=== PATIENT | female | born 1980 | race African-American/Black ===

== ENCOUNTER 2017-06-14 19:04 | Emergency (ER) | payer MEDICAID ==
[~2017-06-14] VITALS: Ht 162.6 cm; Wt 71.7 kg
[~2017-06-14 19:04] MED LIST: DOCU-131 PO; FERR325T18 PO; IBUP-1223 PO; METO10TA82 PO; NONE PER PT; OXYC-302 PO; OXYC-306 PO; PREN1TAB60
[2017-06-14] MEDS ORDERED: LIDOCAINE 1%, 20ML SQ ONE (19:30)
[2017-06-14] MEDS ORDERED: DIPH,PERTUSS(ACELL),TET VAC/PF 0.5 ML IM-VACC ONE ×2 (20:30→20:31)
[2017-06-14] MEDS ORDERED: L.E.T SOLUTION TP ONE ×2 (20:30→20:32)
[2017-06-14] MEDS ORDERED: LIDOCAINE 1%, 20ML ONE (20:31)
[2017-06-14] MEDS ORDERED: LORazepam 2 MG/ML, 1ML ONE (22:25)
[2017-06-14] MEDS ORDERED: LORazepam 2 MG/ML, 1ML IM ONE (22:30)
[2017-06-14] MEDS ORDERED: ETOMIDATE 20 MG/10 ML IV ONE (23:00)
[2017-06-15] MEDS ORDERED: ETOMIDATE 20 MG/10 ML ONE (00:10)
[2017-06-15 05:22] VITALS: BP 181/94
== END 2017-06-15 05:40 | disposition home or self-care (01) ==
LOC: ED 21:09
DX: S01.01XA Laceration without foreign body of scalp, initial encounter (principal); S83.91XA Sprain of unspecified site of right knee, initial encounter; V49.9XXA Car occupant (driver) (passenger) injured in unspecified traffic accident, initial encounter; Y93.89 Activity, other specified; Y92.89 Other specified places as the place of occurrence of the external cause; Y99.8 Other external cause status
CPT/HCPCS: 13152; 29505; 70450; 73564; 73590; 90471; 90715; 96372; 99285; J2060

== ENCOUNTER → 2018-01-13 | Outpatient (CLI) | payer MEDICAID ==
[2018-01-13 10:43] LABS: BASOPHILS # (AUTO) 0.03 x10^3/uL (0-0.1); BASOPHILS % (AUTO) 0 % (0-1); EOSINOPHILS # (AUTO) 0.16 x10^3/uL (0-0.4); EOSINOPHILS % (AUTO) 2 % (1-7); LYMPHOCYTES # (AUTO) 2.02 x10^3/uL (1-3.4); LYMPHOCYTES % (AUTO) 23 % (22-44); MD NO; MEAN CORPUSCULAR HEMOGLOBIN 25.4 pg (27.0-34.8); MEAN CORPUSCULAR HGB CONC 32.2 g/dL (32.4-35.8); MEAN CORPUSCULAR VOLUME 78.9 fL (80-100); MEAN PLATELET VOLUME 6.9 fL (7.4-10.4); MONOCYTES # (AUTO) 0.61 x10^3/uL (0.2-0.8); MONOCYTES % (AUTO) 7 % (2-9); NEUTROPHILS # (AUTO) 5.82 x10^3/uL (1.8-6.8); NEUTROPHILS % (AUTO) 67 % (42-75); PLATELET COUNT 487 x10^3/uL (130-400); RED BLOOD COUNT 4.73 x10^6/uL (3.82-5.3); RED CELL DISTRIBUTION WIDTH 17.9 % (9.6-15.2)
[2018-01-13 10:50] LABS: INTERNATIONAL NORMALIZED RATIO 0.99 (0.93-1.1); PROTHROMBIN TIME 10.3 Seconds (9.6-11.5)
[2018-01-13 10:54] LABS: ALBUMIN 3.1 g/dL (3.4-5.0); ANION GAP 8 mmol/L (5-15); CHLORIDE 103 mmol/L (98-107)
[2018-01-13 10:58] LABS: ALANINE AMINOTRANSFERASE 22 U/L (12-78); ALKALINE PHOSPHATASE 112 U/L (45-117); BILIRUBIN,TOTAL 0.4 mg/dL (0.2-1.0); CALCIUM 8.5 mg/dL (8.5-10.1); CREATININE 0.76 mg/dL (0.55-1.02); TOTAL PROTEIN 7.8 g/dL (6.4-8.2)
== END | disposition home or self-care (01) ==
LOC: STAR 09:57
PROVIDERS: ATTEND Specialist
DX: Z01.818 Encounter for other preprocedural examination (principal); A63.0 Anogenital (venereal) warts
CPT/HCPCS: 36415; 80053; 85025; 85610; 85730

== ENCOUNTER 2018-01-24 09:14 | Day surgery (SDC) | payer MEDICAID ==
[~2018-01-24] VITALS: Ht 162.6 cm; Wt 63.7 kg
[2018-01-24] MEDS ORDERED: LACTATED RINGERS 1,000 ML IV SCH (09:35)
[2018-01-24 09:36] VITALS: BP 150/74
[2018-01-24] MEDS ORDERED: LIDOCAINE-MPF 1%, 2ML INFIL ONE (10:00)
[2018-01-24] MEDS ORDERED: MIDAZOLAM 1 MG/ML, 2ML ONE (10:05)
[2018-01-24] MEDS ORDERED: FENTANYL PF 250 MCG/5ML ONE (10:06)
[2018-01-24] MEDS ORDERED: PROPOFOL 10 MG/ML, 20ML ONE (10:20)
[2018-01-24] MEDS ORDERED: BUPIVACAINE 0.25% INFIL ONE (10:52)
[2018-01-24] MEDS ORDERED: EPINEPHRINE 1 MG/ML, 1ML INFIL ONE (10:53)
[2018-01-24] MEDS ORDERED: LABETALOL 5MG/ML, 20ML IV PRN (11:30)
[2018-01-24] MEDS ORDERED: ONDANSETRON ODT 8 MG PO PRN (11:30)
[2018-01-24] MEDS ORDERED: MEPERIDINE/PF 25MG/0.5ML IVPush PRN (11:30)
[2018-01-24] MEDS ORDERED: FENTANYL PF 100 MCG/2ML IV PRN (11:30)
[2018-01-24] MEDS ORDERED: KETOROLAC 30 MG/1 ML IV PRN (11:30)
[2018-01-24] MEDS ORDERED: ACETAMINOPHEN 325 MG TABLET PO PRN (11:30)
[2018-01-24] MEDS ORDERED: OXYcodone 5 MG/5 ML ORAL.SOL UDC PO PRN (11:30)
[2018-01-24] MEDS ORDERED: MORPHINE SULFATE 4 MG/ML, 1ML IVPush PRN (11:30)
== END 2018-01-24 16:35 ==
LOC: OUT 09:14
PROVIDERS: ATTEND Specialist
DX: N76.2 Acute vulvitis (principal); N90.89 Other specified noninflammatory disorders of vulva and perineum; Z72.89 Other problems related to lifestyle; Z87.891 Personal history of nicotine dependence; Z98.890 Other specified postprocedural states
CPT/HCPCS: 56605; 81025; 88305; J0171; J2250; J2704; J3010; J3490; J7120

== ENCOUNTER 2018-02-21 09:06 | Inpatient (IN) | payer MEDICAID ==
[~2018-02-21] VITALS: Ht 162.6 cm; Wt 72.3 kg
[~2018-02-21 09:06] MED LIST changes: +BUPIVACAINE/PF 0.25% ONE; +FENTANYL PF 250 MCG/5ML ONE; +MIDAZOLAM 1 MG/ML, 2ML ONE
[2018-02-21 10:00] VITALS: BP 172/73
[2018-02-21] MEDS ORDERED: LACTATED RINGERS 1,000 ML IV SCH (10:14)
[2018-02-21 10:15] LABS: HCG UR SG 1.024 (1.003-1.030)
[2018-02-21] MEDS ORDERED: SCOPOLAMINE PATCH, 1.5MG PATCH.TD72 TD ONE ×2 (10:22→10:30)
[2018-02-21] MEDS ORDERED: ACETAMINOPHEN 500 MG TABLET ONE (10:22)
[2018-02-21] MEDS ORDERED: GABAPENTIN 300 MG CAPSULE ONE (10:23)
[2018-02-21] MEDS ORDERED: OxyconTIN ER 10 MG TAB.ER ONE (10:25)
[2018-02-21] MEDS: GABAPENTIN 300 MG CAPSULE PO SCH ×3 (10:30→20:36)
[2018-02-21] MEDS ORDERED: OxyconTIN ER 10 MG TAB.ER PO ONE (10:30)
[2018-02-21] MEDS ORDERED: ACETAMINOPHEN 500 MG TABLET PO ONE (10:30)
[2018-02-21] MEDS ORDERED: ONDANSETRON 2MG/ML, 2ML ONE (12:25)
[2018-02-21] MEDS ORDERED: DEXAMETHASONE 4 MG/ML, 1ML ONE (12:25)
[2018-02-21] MEDS ORDERED: CEFAZOLIN 1,000 MG ONE (12:25)
[2018-02-21] MEDS ORDERED: ROCURONIUM 10 MG/ML,10ML ONE (12:25)
[2018-02-21] MEDS ORDERED: PROPOFOL 10 MG/ML, 20ML ONE (12:25)
[2018-02-21] MEDS ORDERED: NEOSTIGMINE 1 MG/ML, 10ML ONE (12:25)
[2018-02-21] MEDS ORDERED: GLYCOPYRROLATE 0.2MG/1ML, 5ML ONE (12:25)
[2018-02-21] MEDS ORDERED: SUCCINYLCHOLINE 20 MG/ML, 10ML ONE (12:25)
[2018-02-21] MEDS ORDERED: OXYcodone 5 MG/5 ML ORAL.SOL UDC PO PRN (13:00)
[2018-02-21] MEDS ORDERED: HYDROmorphone 1 MG/ML, 1ML IV PRN (13:00)
[2018-02-21] MEDS ORDERED: hydrALAzine 20 MG/ML, 1ML IV PRN (13:00)
[2018-02-21] MEDS ORDERED: MEPERIDINE/PF 25MG/0.5ML IVPush PRN (13:00)
[2018-02-21] MEDS ORDERED: ONDANSETRON 2MG/ML, 2ML IVPush PRN (13:00)
[2018-02-21] MEDS ORDERED: PROMETHAZINE 25 MG/ML, 1ML IV PRN (13:00)
[2018-02-21] MEDS ORDERED: FENTANYL PF 100 MCG/2ML IV PRN (13:00)
[2018-02-21] MEDS ORDERED: ALBUTEROL SULFATE 2.5 MG/3 ML NPPB PRN (13:00)
[2018-02-21] MEDS ORDERED: KETOROLAC 30 MG/1 ML IV PRN (13:00)
[2018-02-21] MEDS ORDERED: LABETALOL 5MG/ML, 20ML IV PRN (13:00)
[2018-02-21] MEDS ORDERED: METOCLOPRAMIDE 5 MG/ML, 2ML IV PRN (13:00)
[2018-02-21] MEDS ORDERED: BUPIVACAINE/PF 0.25% INFIL ONE (13:02)
[2018-02-21] MEDS ORDERED: BUPIVACAINE/PF 0.25% ONE (14:34)
[2018-02-21] MEDS ORDERED: FENTANYL PF 100 MCG/2ML ONE (14:44)
[2018-02-21] MEDS ORDERED: KETOROLAC 30 MG/1 ML ONE (14:44)
[2018-02-21] MEDS ORDERED: OXYcodone 5 MG/5 ML ORAL.SOL UDC ONE (14:44)
[2018-02-21] MEDS ORDERED: hydrALAzine 20 MG/ML, 1ML ONE (14:57)
[2018-02-21] MEDS: LACTATED RINGERS 1,000 ML IV SCH (16:30)
[2018-02-21 19:57] VITALS: BP 122/62
[2018-02-22 00:16] VITALS: BP 130/71
[2018-02-22] MEDS: LACTATED RINGERS 1,000 ML IV SCH ×3 (03:51→17:30)
[2018-02-22] MEDS: KETOROLAC 30 MG/1 ML IV PRN ×2 (03:52→13:39)
[2018-02-22 04:30] VITALS: BP 117/70
[2018-02-22 05:54] LABS: BASOPHILS # (AUTO) 0.03 x10^3/uL (0-0.1); BASOPHILS % (AUTO) 0 % (0-1); EOSINOPHILS # (AUTO) 0.11 x10^3/uL (0-0.4); EOSINOPHILS % (AUTO) 1 % (1-7); LYMPHOCYTES # (AUTO) 1.49 x10^3/uL (1-3.4); LYMPHOCYTES % (AUTO) 17 % (22-44); MD NO; MEAN CORPUSCULAR HEMOGLOBIN 25.5 pg (27.0-34.8); MEAN CORPUSCULAR HGB CONC 31.8 g/dL (32.4-35.8); MEAN PLATELET VOLUME 7.3 fL (7.4-10.4); MONOCYTES # (AUTO) 0.56 x10^3/uL (0.2-0.8); MONOCYTES % (AUTO) 7 % (2-9); NEUTROPHILS # (AUTO) 6.39 x10^3/uL (1.8-6.8); NEUTROPHILS % (AUTO) 75 % (42-75); PLATELET COUNT 435 x10^3/uL (130-400); RED BLOOD COUNT 4.05 x10^6/uL (3.82-5.3)
[2018-02-22 05:57] LABS: ANION GAP 7 mmol/L (5-15); CALCIUM 7.8 mg/dL (8.5-10.1); CHLORIDE 105 mmol/L (98-107); CREATININE 0.87 mg/dL (0.55-1.02)
[2018-02-22] MEDS: GABAPENTIN 300 MG CAPSULE PO SCH ×3 (08:54→20:48)
[2018-02-22 09:38] VITALS: BP 137/73
[2018-02-22] MEDS: OXYcodone/APAP 5/325MG TABLET PO PRN (13:40)
[2018-02-22 13:52] VITALS: BP 138/76
[2018-02-22 19:46] VITALS: BP 123/69
[2018-02-23 02:41] VITALS: BP 136/75
[2018-02-23] MEDS: OXYcodone/APAP 5/325MG TABLET PO PRN ×2 (04:34)
[2018-02-23] MEDS: LACTATED RINGERS 1,000 ML IV SCH ×2 (06:16→19:51)
[2018-02-23 07:32] VITALS: BP 138/75
[2018-02-23] MEDS: GABAPENTIN 300 MG CAPSULE PO SCH ×3 (09:29→20:55)
[2018-02-23 12:57] VITALS: BP 141/72
[2018-02-23] MEDS: KETOROLAC 30 MG/1 ML IV PRN ×2 (13:04→19:59)
[2018-02-23 19:25] VITALS: BP 133/83
[2018-02-23] MEDS: ACETAMINOPHEN 325 MG TABLET PO PRN (20:55)
[2018-02-24 01:30] VITALS: BP 146/81
[2018-02-24 06:54] VITALS: BP 146/75
[2018-02-24] MEDS: KETOROLAC 30 MG/1 ML IV PRN ×2 (07:37→15:48)
[2018-02-24] MEDS: LACTATED RINGERS 1,000 ML IV SCH ×2 (08:25→20:14)
[2018-02-24] MEDS: GABAPENTIN 300 MG CAPSULE PO SCH ×3 (08:25→20:57)
[2018-02-24 13:36] VITALS: BP 152/80
[2018-02-24 20:21] VITALS: BP 141/79
[2018-02-25] MEDS: KETOROLAC 30 MG/1 ML IV PRN ×4 (00:32→23:58)
[2018-02-25 02:23] VITALS: BP 145/73
[2018-02-25 05:58] LABS: ANION GAP 3 mmol/L (5-15); CALCIUM 8.1 mg/dL (8.5-10.1); CHLORIDE 110 mmol/L (98-107)
[2018-02-25 06:01] LABS: ALANINE AMINOTRANSFERASE 15 U/L (12-78); ALKALINE PHOSPHATASE 74 U/L (45-117); BASOPHILS # (AUTO) 0.04 x10^3/uL (0-0.1); BASOPHILS % (AUTO) 0 % (0-1); BILIRUBIN,TOTAL 0.3 mg/dL (0.2-1.0); CREATININE 0.72 mg/dL (0.55-1.02); EOSINOPHILS # (AUTO) 0.48 x10^3/uL (0-0.4); EOSINOPHILS % (AUTO) 4 % (1-7); LYMPHOCYTES # (AUTO) 1.49 x10^3/uL (1-3.4); LYMPHOCYTES % (AUTO) 13 % (22-44); MD NO; MEAN CORPUSCULAR HEMOGLOBIN 26.4 pg (27.0-34.8); MEAN CORPUSCULAR HGB CONC 32.5 g/dL (32.4-35.8); MEAN CORPUSCULAR VOLUME 81.1 fL (80-100); MEAN PLATELET VOLUME 7.3 fL (7.4-10.4); MONOCYTES # (AUTO) 0.65 x10^3/uL (0.2-0.8); MONOCYTES % (AUTO) 6 % (2-9); NEUTROPHILS # (AUTO) 8.48 x10^3/uL (1.8-6.8); NEUTROPHILS % (AUTO) 76 % (42-75); PLATELET COUNT 431 x10^3/uL (130-400); RED BLOOD COUNT 4.02 x10^6/uL (3.82-5.3); RED CELL DISTRIBUTION WIDTH 16.8 % (9.6-15.2)
[2018-02-25 06:47] VITALS: BP 156/80
[2018-02-25] MEDS: GABAPENTIN 300 MG CAPSULE PO SCH ×3 (07:40→20:38)
[2018-02-25] MEDS: LACTATED RINGERS 1,000 ML IV SCH (08:38)
[2018-02-25 14:26] VITALS: BP 136/70
[2018-02-25] MEDS: OXYcodone/APAP 5/325MG TABLET PO PRN (17:51)
[2018-02-25 20:04] VITALS: BP 134/81
[2018-02-26 00:57] VITALS: BP 134/68
[2018-02-26] MEDS: OXYcodone/APAP 5/325MG TABLET PO PRN ×5 (02:21→23:32)
[2018-02-26 05:45] LABS: BASOPHILS # (AUTO) 0.03 x10^3/uL (0-0.1); BASOPHILS % (AUTO) 0 % (0-1); EOSINOPHILS % (AUTO) 6 % (1-7); LYMPHOCYTES # (AUTO) 1.52 x10^3/uL (1-3.4); LYMPHOCYTES % (AUTO) 18 % (22-44); MD NO; MEAN CORPUSCULAR HEMOGLOBIN 26.4 pg (27.0-34.8); MEAN CORPUSCULAR HGB CONC 32.9 g/dL (32.4-35.8); MEAN CORPUSCULAR VOLUME 80.4 fL (80-100); MEAN PLATELET VOLUME 7.6 fL (7.4-10.4); MONOCYTES # (AUTO) 0.65 x10^3/uL (0.2-0.8); MONOCYTES % (AUTO) 8 % (2-9); NEUTROPHILS # (AUTO) 5.86 x10^3/uL (1.8-6.8); NEUTROPHILS % (AUTO) 68 % (42-75); PLATELET COUNT 469 x10^3/uL (130-400); RED BLOOD COUNT 3.62 x10^6/uL (3.82-5.3); RED CELL DISTRIBUTION WIDTH 16.9 % (9.6-15.2)
[2018-02-26 05:50] LABS: CHLORIDE 107 mmol/L (98-107)
[2018-02-26 05:58] LABS: ANION GAP 7 mmol/L (5-15); CALCIUM 7.9 mg/dL (8.5-10.1); CREATININE 0.68 mg/dL (0.55-1.02)
[2018-02-26] MEDS: GABAPENTIN 300 MG CAPSULE PO SCH ×3 (08:28→21:47)
[2018-02-26 09:01] VITALS: BP 112/54
[2018-02-26] MEDS: KETOROLAC 30 MG/1 ML IV PRN ×2 (10:32→16:45)
[2018-02-26 15:39] VITALS: BP 127/75
[2018-02-26] MEDS ORDERED: SODIUM CHLORIDE 0.9%, 500ML IVBOLUS ONE (18:00)
[2018-02-26 21:35] VITALS: BP 126/68
[2018-02-26] MEDS: DOCUSATE 100 MG CAPSULE PO SCH (21:47)
[2018-02-26] MEDS: ACETAMINOPHEN 325 MG TABLET PO PRN (22:04)
[2018-02-27 03:55] VITALS: BP 125/71
[2018-02-27] MEDS ORDERED: HEPARIN 5,000 UNITS/ML, 1ML ONE (05:58)
[2018-02-27] MEDS: OXYcodone/APAP 5/325MG TABLET PO PRN ×4 (06:01→19:42)
[2018-02-27] MEDS: GABAPENTIN 300 MG CAPSULE PO SCH ×3 (07:29→19:42)
[2018-02-27] MEDS: DOCUSATE 100 MG CAPSULE PO SCH ×2 (07:29→19:42)
[2018-02-27 07:40] VITALS: BP 150/74
[2018-02-27 15:30] VITALS: BP 131/61
[2018-02-27 20:00] VITALS: BP 150/82
[2018-02-28] MEDS: OXYcodone/APAP 5/325MG TABLET PO PRN ×4 (00:23→12:23)
[2018-02-28 01:18] VITALS: BP 129/69
[2018-02-28 07:32] VITALS: BP 133/65
[2018-02-28] MEDS: GABAPENTIN 300 MG CAPSULE PO SCH (08:48)
[2018-02-28] MEDS: DOCUSATE 100 MG CAPSULE PO SCH (08:49)
[2018-02-28] MEDS ORDERED: OXYC-306 PO (12:33)
== END 2018-02-28 12:40 | disposition home or self-care (01) | DRG 581 ==
LOC: ORIP 09:06 → 4NOR 16:10
PROVIDERS: ADMIT Specialist; ATTEND Specialist
PROC: 0UTM0ZZ Resection of Vulva, Open Approach (ICD-10-PCS; principal; 2018-02-21 10:30)
DX: A63.0 Anogenital (venereal) warts (principal); F17.210 Nicotine dependence, cigarettes, uncomplicated
CPT/HCPCS: 36415; 80048; 80053; 81025; 85025; 87040; 87086; 88309; J0690; J1100; J1885; J2250; J2405; J2704; J2710; J3010; J3490; J0330; J0360; J7040; J7120

== ENCOUNTER 2018-02-28 21:57 | Emergency (ER) | payer MEDICAID ==
[~2018-02-28] VITALS: Ht 162.6 cm; Wt 62.6 kg
[~2018-02-28 21:57] MED LIST changes: -BUPIVACAINE/PF 0.25% ONE; -FENTANYL PF 250 MCG/5ML ONE; -MIDAZOLAM 1 MG/ML, 2ML ONE
[2018-02-28 21:59] VITALS: BP 150/80
[2018-02-28] MEDS ORDERED: OXYcodone/APAP 5/325MG TABLET ONE (22:35)
[2018-02-28] MEDS ORDERED: OXYcodone/APAP 5/325MG TABLET PO ONE (23:00)
== END 2018-03-01 00:31 | disposition home or self-care (01) ==
LOC: ED 23:59
DX: R10.2 Pelvic and perineal pain (principal); A63.0 Anogenital (venereal) warts; Z76.0 Encounter for issue of repeat prescription
CPT/HCPCS: 99283

== ENCOUNTER 2018-03-08 13:36 | Inpatient (IN) | payer MEDICAID ==
[~2018-03-08] VITALS: Ht 162.6 cm; Wt 61.0 kg
[2018-03-08 14:28] LABS: BASOPHILS # (AUTO) 0.04 x10^3/uL (0-0.1); BASOPHILS % (AUTO) 1 % (0-1); EOSINOPHILS # (AUTO) 0.39 x10^3/uL (0-0.4); EOSINOPHILS % (AUTO) 5 % (1-7); LYMPHOCYTES # (AUTO) 2.24 x10^3/uL (1-3.4); LYMPHOCYTES % (AUTO) 28 % (22-44); MD NO; MEAN CORPUSCULAR HEMOGLOBIN 25.8 pg (27.0-34.8); MEAN CORPUSCULAR HGB CONC 32.4 g/dL (32.4-35.8); MEAN CORPUSCULAR VOLUME 79.5 fL (80-100); MEAN PLATELET VOLUME 6.9 fL (7.4-10.4); MONOCYTES # (AUTO) 0.36 x10^3/uL (0.2-0.8); MONOCYTES % (AUTO) 5 % (2-9); NEUTROPHILS # (AUTO) 5.05 x10^3/uL (1.8-6.8); NEUTROPHILS % (AUTO) 63 % (42-75); PLATELET COUNT 897 x10^3/uL (130-400); RED BLOOD COUNT 4.24 x10^6/uL (3.82-5.3); RED CELL DISTRIBUTION WIDTH 16.4 % (9.6-15.2)
[2018-03-08] MEDS ORDERED: VANCOMYCIN PER PHARMACY MC ONE (14:30)
[2018-03-08] MEDS ORDERED: SODIUM CHLORIDE FLUSH 10ML SYR IVF ONE (14:30)
[2018-03-08] MEDS ORDERED: AMPICILLIN/SULBACTAM 3 GM in SODIUM CHLORIDE 0.9% 100 ML IVPB ONE (14:30)
[2018-03-08 14:35] LABS: ALBUMIN 2.8 g/dL (3.4-5.0); ANION GAP 4 mmol/L (5-15); CALCIUM 8.2 mg/dL (8.5-10.1); CHLORIDE 111 mmol/L (98-107); CREATININE 0.89 mg/dL (0.55-1.02)
[2018-03-08] MEDS ORDERED: MORPHINE SULFATE 4 MG/ML, 1ML ONE ×2 (14:56→16:51)
[2018-03-08] MEDS: MORPHINE SULFATE 4 MG/ML, 1ML IV PRN ×2 (15:00→16:56)
[2018-03-08] MEDS ORDERED: VANCOMYCIN 1,200 MG in SODIUM CHLORIDE 0.9% 250 ML IV ONE (15:00)
[2018-03-08 15:20] LABS: MICROSCOPIC INDICATED
[2018-03-08 15:30] LABS: CULTURE INDICATED? YES
[2018-03-08] MEDS ORDERED: ONDANSETRON 2MG/ML, 2ML IVPush PRN (19:30)
[2018-03-08] MEDS ORDERED: ONDANSETRON ODT 4 MG PO PRN (19:30)
[2018-03-08] MEDS: SODIUM CHLORIDE 0.45% 1,000 ML IV SCH (19:47)
[2018-03-08 20:00] VITALS: BP 119/62
[2018-03-08] MEDS: OXYcodone/APAP 7.5/325MG TABLET PO PRN (20:08)
[2018-03-09 01:28] VITALS: BP 127/65
[2018-03-09] MEDS: OXYcodone/APAP 7.5/325MG TABLET PO PRN ×4 (01:52→22:29)
[2018-03-09 07:23] VITALS: BP 145/78
[2018-03-09] MEDS: SODIUM CHLORIDE 0.45% 1,000 ML IV SCH ×2 (10:20→22:59)
[2018-03-09 13:58] VITALS: BP 153/87
[2018-03-09] MEDS: MORPHINE SULFATE 4 MG/ML, 1ML IVPush PRN (15:51)
[2018-03-09 20:18] VITALS: BP 142/88
[2018-03-10 01:39] VITALS: BP 141/87
[2018-03-10 07:25] VITALS: BP 168/90
[2018-03-10] MEDS: OXYcodone/APAP 7.5/325MG TABLET PO PRN ×2 (08:22→16:40)
[2018-03-10 13:00] VITALS: BP 136/73
[2018-03-10] MEDS: MORPHINE SULFATE 4 MG/ML, 1ML IVPush PRN ×2 (13:36→22:26)
[2018-03-10] MEDS: SODIUM CHLORIDE 0.45% 1,000 ML IV SCH (13:36)
[2018-03-10 19:49] VITALS: BP 142/68
[2018-03-11 00:30] VITALS: BP 142/75
[2018-03-11] MEDS: OXYcodone/APAP 7.5/325MG TABLET PO PRN ×4 (01:11→20:44)
[2018-03-11] MEDS: SODIUM CHLORIDE 0.45% 1,000 ML IV SCH ×2 (02:20→20:45)
[2018-03-11 04:54] LABS: BASOPHILS # (AUTO) 0.04 x10^3/uL (0-0.1); BASOPHILS % (AUTO) 1 % (0-1); EOSINOPHILS % (AUTO) 3 % (1-7); LYMPHOCYTES # (AUTO) 1.91 x10^3/uL (1-3.4); LYMPHOCYTES % (AUTO) 28 % (22-44); MD NO; MEAN CORPUSCULAR HEMOGLOBIN 25.7 pg (27.0-34.8); MEAN CORPUSCULAR HGB CONC 32.2 g/dL (32.4-35.8); MEAN CORPUSCULAR VOLUME 79.9 fL (80-100); MEAN PLATELET VOLUME 7.1 fL (7.4-10.4); MONOCYTES # (AUTO) 0.39 x10^3/uL (0.2-0.8); MONOCYTES % (AUTO) 6 % (2-9); NEUTROPHILS # (AUTO) 4.19 x10^3/uL (1.8-6.8); NEUTROPHILS % (AUTO) 62 % (42-75); PLATELET COUNT 706 x10^3/uL (130-400); RED BLOOD COUNT 3.86 x10^6/uL (3.82-5.3); RED CELL DISTRIBUTION WIDTH 15.9 % (9.6-15.2)
[2018-03-11 05:02] LABS: ANION GAP 2 mmol/L (5-15); CALCIUM 7.7 mg/dL (8.5-10.1); CHLORIDE 107 mmol/L (98-107)
[2018-03-11 07:10] VITALS: BP 141/75
[2018-03-11] MEDS: MORPHINE SULFATE 4 MG/ML, 1ML IVPush PRN (12:49)
[2018-03-11 14:36] VITALS: BP 133/72
[2018-03-11 20:31] VITALS: BP 117/70
[2018-03-12] MEDS: MORPHINE SULFATE 4 MG/ML, 1ML IVPush PRN ×2 (01:06→09:14)
[2018-03-12 01:14] VITALS: BP 119/65
[2018-03-12 05:26] LABS: BASOPHILS # (AUTO) 0.04 x10^3/uL (0-0.1); BASOPHILS % (AUTO) 1 % (0-1); EOSINOPHILS # (AUTO) 0.23 x10^3/uL (0-0.4); EOSINOPHILS % (AUTO) 3 % (1-7); LYMPHOCYTES # (AUTO) 2.06 x10^3/uL (1-3.4); LYMPHOCYTES % (AUTO) 29 % (22-44); MD NO; MEAN CORPUSCULAR HEMOGLOBIN 25.9 pg (27.0-34.8); MEAN CORPUSCULAR HGB CONC 32.6 g/dL (32.4-35.8); MEAN CORPUSCULAR VOLUME 79.4 fL (80-100); MEAN PLATELET VOLUME 6.9 fL (7.4-10.4); MONOCYTES # (AUTO) 0.48 x10^3/uL (0.2-0.8); MONOCYTES % (AUTO) 7 % (2-9); NEUTROPHILS # (AUTO) 4.37 x10^3/uL (1.8-6.8); NEUTROPHILS % (AUTO) 61 % (42-75); PLATELET COUNT 702 x10^3/uL (130-400); RED BLOOD COUNT 3.84 x10^6/uL (3.82-5.3); RED CELL DISTRIBUTION WIDTH 16.3 % (9.6-15.2)
[2018-03-12 07:25] VITALS: BP 138/93
[2018-03-12] MEDS: OXYcodone/APAP 7.5/325MG TABLET PO PRN (08:13)
[2018-03-12 10:05] VITALS: BP 114/53
[2018-03-12] MEDS: SODIUM CHLORIDE 0.45% 1,000 ML IV SCH (10:20)
== END 2018-03-12 13:15 | DRG 921 ==
LOC: ED 15:11 → EDIP 16:24 → 4NOR 17:15
PROVIDERS: ADMIT Specialist; ATTEND Specialist
PROC: 0T9B70Z Drainage of Bladder with Drainage Device, Via Natural or Artificial Opening (ICD-10-PCS; principal; 2018-03-08)
DX: T81.31XA Disruption of external operation (surgical) wound, not elsewhere classified, initial encounter (principal); Y83.8 Other surgical procedures as the cause of abnormal reaction of the patient, or of later complication, without mention of misadventure at the time of the procedure; Y92.89 Other specified places as the place of occurrence of the external cause; F10.21 Alcohol dependence, in remission; H66.90 Otitis media, unspecified, unspecified ear; N76.2 Acute vulvitis; Z80.0 Family history of malignant neoplasm of digestive organs; Z85.44 Personal history of malignant neoplasm of other female genital organs; Z87.891 Personal history of nicotine dependence
CPT/HCPCS: 36415; 80048; 81001; 82040; 84703; 85025; 87077; 87086; 87186; 96365; 96367; 96375; 96376; J0295; J2405; J3370; J7050

== ENCOUNTER 2018-03-23 02:55 | Emergency (ER) | payer MEDICAID ==
[~2018-03-23] VITALS: Ht 162.6 cm; Wt 64.8 kg
[2018-03-23 02:56] VITALS: BP 174/86
[2018-03-23 03:52] LABS: CULTURE INDICATED? YES; MICROSCOPIC AUTO
== END 2018-03-23 04:23 | disposition home or self-care (01) ==
LOC: ED 04:13
DX: T83.098A Other mechanical complication of other urinary catheter, initial encounter (principal); N30.01 Acute cystitis with hematuria
CPT/HCPCS: 81001; 87077; 87086; 87186; 99284

== ENCOUNTER 2018-09-01 17:34 | Emergency (ER) | payer MEDICAID ==
[~2018-09-01] VITALS: Ht 162.6 cm; Wt 75.0 kg
[2018-09-01 18:15] VITALS: BP 146/74
[2018-09-01] MEDS ORDERED: AZITHROMYCIN 250 MG TABLET PO STA (18:26)
[2018-09-01] MEDS ORDERED: BICILLIN-LA 2,400,000 UNITS/4 ML IM ONE (18:30)
[2018-09-01] MEDS ORDERED: CEFTRIAXONE 250 MG IM ONE (18:30)
[2018-09-01] MEDS ORDERED: LIDOCAINE-MPF 1%, 5ML ONE (18:52)
[2018-09-01] MEDS ORDERED: CEFTRIAXONE 250 MG ONE (18:52)
[2018-09-01] MEDS ORDERED: AZITHROMYCIN 250 MG TABLET ONE (18:59)
== END 2018-09-01 19:59 | disposition home or self-care (01) ==
LOC: ED 18:51
DX: A74.9 Chlamydial infection, unspecified (principal); A54.9 Gonococcal infection, unspecified; A53.9 Syphilis, unspecified; F17.200 Nicotine dependence, unspecified, uncomplicated
CPT/HCPCS: 96372; 99283; J0561; J0696

== ENCOUNTER 2020-08-17 20:58 | Emergency (ER) | payer MEDICAID ==
[~2020-08-17] VITALS: Ht 167.6 cm; Wt 87.1 kg
[2020-08-17] MEDS ORDERED: ALBUTEROL/IPRATROPIUM 2.5MG/0.5MG, 3 ML ONE (21:24)
[2020-08-17] MEDS ORDERED: ALBUTEROL/IPRATROPIUM 2.5MG/0.5MG, 3 ML NPPB ONE (21:30)
--- NOTE | 2020-08-17 21:32 | NUR ---
BREATHING TX STARTED AT THIS TIME PT MEDICATED WITH 60MG OF PREDNISONE PER PAZ AT THIS TIEM WELL.
--- NOTE | 2020-08-17 22:24 | NUR ---
PT REPORTS FEELING "LOTS BETTER" AFTER BREATHING TX AND STS SHE CAN TAKE A DEEP BREATH AND IT FEELS LIKE SHE IS GETTING ENOUGH AIR. PA AT BEDSIDE TO DISCUSS POC, PT EDUCATED AGAIN ABOUT STAYING HOME FROM WORK,
[2020-08-17 22:25] VITALS: BP 127/84
== END 2020-08-17 22:42 | disposition home or self-care (01) ==
LOC: ED 22:35
DX: J98.01 Acute bronchospasm (principal); R06.00 Dyspnea, unspecified; Z20.828 Contact with and (suspected) exposure to other viral communicable diseases; R07.89 Other chest pain; R94.31 Abnormal electrocardiogram [ECG] [EKG]
CPT/HCPCS: 71045; 87635; 93005; 99285